=== PATIENT | male | born 1950 | race Hispanic/Latino ===

== ENCOUNTER 2018-02-09 13:10 | Inpatient (IN) | payer MEDICARE, OTHER ==
[2018-02-09 13:35] VITALS: BMI 25.4
--- NOTE | 2018-02-09 13:47 | ED PDOC ---
Arrival/HPI - General Chief Complaint: Chest Pain Time Seen by Provider: 02/09/18 13:24 - History of Present Illness Narrative History of Present Illness (Text): 67 year old male with PMH of quadruple bypass for AZ presents with lightheadedness at 11 AM today and right sided chest pressure at 12:30 PM today. Patient reports not having the chest pressure right now but has continued lightheadedness. He took aspirin 325 this morning which did not relieve his pain. He denies left arm pain, jaw pain, nausea, vomiting, diaphoresis, shortness of breath. He also reports having right sided chest pressure 2 days ago which receded without any intervention. (Raymon Gonzalez) Past Medical History - Provider Review Nursing Documentation Reviewed: Yes - Infectious Disease Hx of Infectious Diseases: None - Cardiac Hx AZ: Yes - Psychiatric Hx Psychophysiologic Disorder: No Hx Anxiety: No Hx Bipolar Disorder: No Hx Depression: No Hx Emotional Abuse: No Hx Hallucinations: No Hx Panic Disorder: No Hx Post Traumatic Stress Disorder: No Hx Psychosis: No Hx Physical Abuse: No Hx Schizophrenia: No Hx Sexual Abuse: No Hx Substance Use: No - Surgical History Hx Coronary Artery Bypass Graft: Yes (triple vessel) - Anesthesia Hx Anesthesia: Yes Hx Anesthesia Reactions: No Hx Malignant Hyperthermia: No Family/Social History - Physician Review Nursing Documentation Reviewed: Yes Family/Social History: Unknown Family HX Smoking Status: Never Smoked Hx Alcohol Use: No Hx Substance Use: No Allergies/Home Meds Allergies/Adverse Reactions: Allergies No Known Allergies Allergy (Verified 09/09/15 11:56) Home Medications: Home Meds Medication Instructions Recorded Confirmed Aspirin 325 mg PO DAILY 09/09/15 02/09/18 Ezetimibe [Zetia] 10 mg PO DAILY 09/09/15 02/09/18 Metoprolol Succinate XL [Toprol XL] 50 mg PO DAILY 09/09/15 02/09/18 Rosuvastatin Calcium [Crestor] 20 mg PO DAILY 09/09/15 02/09/18 metFORMIN [glucOPHAGE] 1 tab PO DAILY 02/09/18 02/09/18 Review of Systems - Review of Systems Eyes: Normal ENT: Normal Respiratory: Normal Cardiovascular: Chest Pain (right sided chest pressure) Gastrointestinal: Normal Musculoskeletal: Normal Skin: Normal Neurological: Normal Endocrine: Normal Hemo/Lymphatic: Normal Psychiatric: Normal Physical Exam - Systems Exam Head: Present: Atraumatic Pupils: Present: PERRL Extroacular Muscles: Present: EOMI Conjunctiva: Present: Normal Mouth: Present: Moist Mucous Membranes Nose (External): Present: Atraumatic Vital Signs Temp Pulse Resp BP Pulse Ox 02/09/18 13:10 98.1 F 61 18 145/79 96 Medical Decision Making ED Course and Treatment: 02/09/18 14:41 A 67 year old male presents to the emergency department today complaining of lightheadedness. In agreement with resident note, which includes further HPI details. Patient was seen and evaluated with resident, came up with plan and treatment together. (Hever Lamar) Impression: 67 year old male presents with lightheadedness for 2.5 hours and right sided chest pressure for 1 hour. Assessment: unstable angina, possible anemia Rule out: AZ, pulmonary embolism, peptic ulcer disease, pneumonia, aortic dissection Plan: O2 NC 2L CBC CMP Troponin: 0.15 Magnesium EKG: sinus bradycardia with occasional PVCs CXR: No active disease UA: 02/09/18 15:10 Troponin was 0.15. EKG was in sinus bradycardia with occasional PVCs. NSTEMI likely. Patient will receive [address] Newman will be called and patient will be admitted. 02/09/18 16:19 Dr. Woods is the certified midwife transportation associate and has not returned our calls. Patient will be admitted to Dr. Sahu's hospitalist service. (Raymon Gonzalez) - Lab Interpretations Lab Results: 02/09/18 14:00 02/09/18 14:00 Lab Results 02/09/18 14:00: Sodium 142, Potassium 4.0, Chloride 108 H, Carbon Dioxide 22, Anion Gap 16, BUN 23 H, Creatinine 1.0, Est GFR ( Amer) > 60, Est GFR ( Non-Af Amer) > 60, Random Glucose 134 H, Calcium 9.1, Magnesium 2.1, Total Bilirubin 0.5, AST 44, ALT 46, Alkaline Phosphatase 64, Lactate Dehydrogenase 457, Total Creatine Kinase 180, Troponin I 0.15 H*, Total Protein 6.5, Albumin 4.0, Globulin 2.5, Albumin/Globulin Ratio 1.6 02/09/18 14:00: WBC 8.8 D, RBC 4.15, Hgb 13.5 L, Hct 38.9 L, MCV 93.7, MCH 32.5 , MCHC 34.7, RDW 13.9, Plt Count 206, MPV 9.1, Gran % 70.6 H, Lymph % (Auto) 17.8 L, Haskell % (Auto) 7.5 H, Eos % (Auto) 3.9, Baso % (Auto) 0.2, Gran # 6.21, Lymph # (Auto) 1.6, Haskell # (Auto) 0.7 H, Eos # (Auto) 0.3, Baso # (Auto) 0.02 - RAD Interpretation Radiology Orders: 02/09/18 13:45 CHEST PORTABLE [RAD] Stat - Medication Orders Current Medication Orders: Discontinued Medications Clopidogrel Bisulfate (Plavix) 300 mg PO STAT STA Stop: 02/09/18 15:08 Last Admin: 02/09/18 16:00 Dose: 300 mg Nitroglycerin (Nitrostat Sl Tab) 0.4 mg SL STAT STA Stop: 02/09/18 13:47 Last Admin: 02/09/18 13:58 Dose: Not Given Non-Admin Reason: Patient Refused - PA / [employer] PILOT / Resident Statement / has reviewed & agrees with the documentation as recorded. / has examined the patient and agrees with the treatment plan. Disposition/Present on Arrival - Present on Arrival Any Indicators Present on Arrival: No History of DVT/PE: No History of Uncontrolled Diabetes: No Urinary Catheter: No History Surgical Site Infection Following: None - Disposition Have Diagnosis and Disposition been Completed?: Yes Disposition Time: 16:17 Patient Plan: Admission - Disposition Diagnosis: NSTEMI (non-ST elevated myocardial infarction) Disposition: HOSPITALIZED Patient Problems: Current Active Problems Problem Status Onset NSTEMI (non-ST elevated myocardial infarction) Acute Condition: UNKNOWN Referrals: Lb Leal DO [Primary Care Provider] - Follow up with primary Forms: [employer] (Armenian)
[2018-02-09 14:10] LABS: BASO # 0.02 K/mm3 (0.0-2.0); BASO % 0.2 % (0.0-3.0); EOS # 0.3 (0.0-0.7); EOS % 3.9 % (1.5-5.0); GRAN # 6.21 (1.4-6.5); GRAN % 70.6 % (50.0-68.0); HEMOGLOBIN 13.5 g/dL (14.0-18.0); LYMPH # 1.6 (1.2-3.4); LYMPH % 17.8 % (22.0-35.0); MEAN CELL VOLUME 93.7 fl (80.0-105.0); MEAN CORPUSCULAR HEMOGLOBIN 32.5 pg (25.0-35.0); MEAN CORPUSCULAR HGB CONC 34.7 g/dl (31.0-37.0); MEAN PLATELET VOLUME 9.1 fl (7.0-11.0); MONO # 0.7 (0.1-0.6); MONO % 7.5 % (1.0-6.0); RBC 4.15 10^6/uL (3.5-6.1); RED CELL DISTRIBUTION WIDTH 13.9 % (11.5-14.5); WHITE BLOOD COUNT 8.8 10^3/ul (4.5-11.0)
--- NOTE | 2018-02-09 14:14 | RAD ---
Date of service: 02/09/2018 HISTORY: r/o infiltrate COMPARISON: No prior. FINDINGS: LUNGS: No active pulmonary disease. PLEURA: No significant pleural effusion identified, no pneumothorax apparent. CARDIOVASCULAR: Moderate cardiomegaly OSSEOUS STRUCTURES: Sternal wire VISUALIZED UPPER ABDOMEN: Normal. OTHER FINDINGS: None. IMPRESSION: No active disease.
[2018-02-09 14:15] LABS: ALB/GLOB RATIO 1.6 (1.1-1.8); ALT/SGPT 46 U/L (7-56); AST/SGOT 44 U/L (17-59); BLOOD UREA NITROGEN 23 mg/dL (7-21); CALCIUM 9.1 mg/dL (8.4-10.5); GFR AFRICAN-AMERICAN > 60; GFR NON-AFRICAN AMERICAN > 60
[2018-02-09 14:48] LABS: TROPONIN I 0.15 ng/mL
[2018-02-09 16:23] LABS: URINE BILIRUBIN NEGATIVE (NEGATIVE); URINE BLOOD NEGATIVE (NEGATIVE); URINE GLUCOSE (UA) NEGATIVE (NEGATIVE); URINE LEUKOCYTE ESTERASE NEGATIVE Leu/uL (NEGATIVE); URINE PROTEIN NEGATIVE mg/dL (<30 mg/dL); URINE UROBILINOGEN 0.2 E.U./dL (<1 E.U./dL)
[2018-02-09 16:24] LABS: URINE APPEARANCE CLEAR (CLEAR); URINE COLOR YELLOW (YELLOW)
[2018-02-09] MEDS ORDERED: Enoxaparin 80 mg Syringe SC STA (17:25)
--- NOTE | 2018-02-09 18:39 | CP.PCM.HP ---
<SamreenIvan - Last Filed: 02/09/18 19:43> History of Present Illness - History of Present Illness History of Present Illness: Ivan Jolley PGY2 IM H&P Note for Dr. Saleh Mr. Michaels is a 67-year-old male with a past medical history of CAD S/P CABG with triple vessel bypass (1994 in [facility] and lung [place]), ACS, DM 2, HTN, HLD, GERD, obstructive sleep apnea, arthritis of left hip who presents to the ED with complaints of multiple episodes of chest pain lasting no longer than 30 minutes each. His symptoms started 2 days ago after eating and resolved after 30 minutes without any medications, but he later had the same symptoms at night and they recurred again throughout the day yesterday and on the morning of his presentation. The patient describes the pain as substernal chest pain or heaviness radiating toward his right shoulder but not associated with diaphoresis, shortness of breath, nausea/vomiting, headaches, weakness, dizziness, or abdominal pain. The patient states that this is not similar to the pain that he had when he had his ACS symptoms many years ago, which was more of a choking sensation in his chest radiating to his neck. The patient does state that this is more similar to his GERD symptoms, but he did not attempt to take his home omeprazole for it, and denies any new foods or excessive spicy or fatty foods. When evaluated by medical team, the patient denied all complaints of chest pain or shortness of breath. The patient is a private patient of Dr. Newman, and states that he follows up with him regularly. He states that his last echo and stress test were done by Dr. Newman in the past year, however chart review reveals that his last stress test on file is from 2016 which showed an abnormal SPECT study with partially reversible inferior and inferolateral defects with inferolateral hypokinesis and paradoxical septal wall motion. Per , the patient has experienced ACS episodes since his CABG and underwent multiple LHC's (most recent 4 yrs ago), but was not a candidate for stents due to anatomy post CABG. A 12 point ROS was reviewed and is otherwise unremarkable. In ED, troponin was noted to be 0.15 an EKG was in sinus bradycardia with occasional PVCs. Patient was given 300 mg Plavix. Toy Designer was contacted, and recommended patient to be treated as NSTEMI. Patient was started on therapeutic Lovenox, lisinopril, and cardio recommended to recheck troponins in the morning. PMH: as above PSH: CABG, uvulectomy Meds: Aspirin 325 mg daily, metoprolol succinate 50 mg daily, rosuvastatin 20 mg daily, ezetimibe 10 mg daily, metformin 500 mg daily, omeprazole 40mg daily Allergies: NKDA SHx: Former tobacco smoker (1 pack per day for over 30 years), drinks wine occasionally, denies drug use FHx: Heart disease in both sides of the family Present on Admission - Present on Admission Any Indicators Present on Admission: No Review of Systems - Review of Systems All systems: reviewed and no additional remarkable complaints except (as per HPI ) Past Patient History - Infectious Disease Hx of Infectious Diseases: None - Past Medical History & Family History Past Medical History?: Yes Pertinent Family History: Heart disease in both sides of family - Past Social History Smoking Status: Never Smoked Alcohol: < 2 Drinks/Day Drugs: Denies Home Situation {Lives}: With Family - CARDIAC Hx Heart Attack: Yes (s/p CABG) Hx Hypercholesterolemia: Yes Hx Hypertension: Yes - PULMONARY Hx Respiratory Disorders: No - NEUROLOGICAL Hx Neurological Disorder: No - HEENT Hx HEENT Problems: No - RENAL Hx Chronic Kidney Disease: No - ENDOCRINE/METABOLIC Hx Diabetes Mellitus Type 2: Yes - HEMATOLOGICAL/ONCOLOGICAL Hx Blood Disorders: No - INTEGUMENTARY Hx Dermatological Problems: No - MUSCULOSKELETAL/RHEUMATOLOGICAL Hx Arthritis: Yes - GASTROINTESTINAL Hx Gastroesophageal Reflux: Yes - GENITOURINARY/GYNECOLOGICAL Hx Genitourinary Disorders: No - PSYCHIATRIC Hx Psychophysiologic Disorder: No Hx Anxiety: No Hx Bipolar Disorder: No Hx Depression: No Hx Emotional Abuse: No Hx Hallucinations: No Hx Panic Symptoms: No Hx Post Traumatic Stress Disorder: No Hx Psychosis: No Hx Physical Abuse: No Hx Schizophrenia: No Hx Sexual Abuse: No Hx Substance Use: No - SURGICAL HISTORY Hx Coronary Artery Bypass Graft: Yes (triple vessel) - ANESTHESIA Hx Anesthesia: Yes Hx Anesthesia Reactions: No Hx Malignant Hyperthermia: No Meds Allergies/Adverse Reactions: Allergies Allergy/AdvReac Type Severity Reaction Status Date / Time No Known Allergies Allergy Verified 09/09/15 11:56 Physical Exam - Constitutional Appears: Well, Non-toxic, No Acute Distress - Head Exam Head Exam: NORMAL INSPECTION - Eye Exam Eye Exam: Normal appearance - ENT Exam ENT Exam: Mucous Membranes Moist - Respiratory Exam Respiratory Exam: Clear to Auscultation Bilateral, NORMAL BREATHING PATTERN. absent: Accessory Muscle Use, Chest Wall Tenderness, Decreased Breath Sounds, Rales, Rhonchi, Wheezes, Respiratory Distress - Cardiovascular Exam Cardiovascular Exam: RRR, +S1, +S2. absent: JVD, Systolic Murmur - GI/Abdominal Exam GI & Abdominal Exam: Normal Bowel Sounds, Soft. absent: Distended, Tenderness - Extremities Exam Extremities exam: Positive for: full ROM, normal inspection, pedal pulses present. Negative for: calf tenderness, pedal edema - Back Exam Back exam: NORMAL INSPECTION. absent: CVA tenderness (L), CVA tenderness (R), paraspinal tenderness, vertebral tenderness - Neurological Exam Neurological exam: Alert, CN II-XII Intact, Normal Gait, Oriented x3 - Psychiatric Exam Psychiatric exam: Normal Mood - Skin Skin Exam: Normal Color, Warm Results - Vital Signs Recent Vital Signs: Last Vital Signs Temp 98.1 F 02/09/18 13:10 Pulse 61 02/09/18 17:31 Resp 18 02/09/18 17:27 BP 130/81 02/09/18 17:31 Pulse Ox 95 02/09/18 17:27 - Labs Result Diagrams: 02/09/18 14:00 02/09/18 14:00 Assessment & Plan - Assessment and Plan (Free Text) Assessment: 67-year-old male with a past medical history of CAD S/P CABG with triple vessel bypass (1994 in [facility] and lung [place]), ACS, DM 2, HTN, HLD, GERD, obstructive sleep apnea, arthritis of left hip who presents to the ED with complaints of multiple episodes of chest pain. Given his extensive cardiac history and multiple episodes of chest pain not associated with exertion, and per cardiology recommendations, the patient will be admitted for workup and evaluation of ACS. He is currently receiving treatment for NSTEMI w/ triple antiplatelet therapy and troponin and EKGs will be followed. Plan: 1. ACS, treating for NSTMI - Patient was given Plavix and Lovenox therapeutic doses in the ED - Continue aspirin 81 mg, Plavix 75 mg daily and Lovenox 70 mg BID - f/u AM troponin - trend EKG and monitor for any changes - Cardiology will see patient in AM and determine if any intervention is required - NPO past MN - Continue Lipitor, metoprolol, and nitroglycerin SL as needed - A1C, Lipid panel and TSH ordered - zofran prn - admit to telemetry for monitoring - Echo ordered - CXR ordered 2. Hx DM2 - ISS - Accuchecks ACHS - CCD HHD Pepcid for GI ppx SCDs for DVT ppx Case was reviewed and discussed with attending, Dr. Saleh <Severino Saleh - Last Filed: 02/10/18 13:55> Results - Vital Signs Recent Vital Signs: Last Vital Signs Temp 98.9 F 02/10/18 12:00 Pulse 56 L 02/10/18 12:00 Resp 16 02/10/18 12:00 BP 122/64 02/10/18 12:00 Pulse Ox 97 02/10/18 06:00 - Labs Result Diagrams: 02/10/18 06:30 02/10/18 06:45 Labs: Laboratory Results - last 24 hr 02/09/18 02/10/18 02/10/18 21:40 06:30 06:45 WBC 7.2 RBC 4.30 Hgb 13.4 L Hct 40.3 L MCV 93.7 MCH 31.2 MCHC 33.3 RDW 14.0 Plt Count 200 MPV 9.4 Sodium 144 Potassium 3.8 Chloride 108 H Carbon Dioxide 26 Anion Gap 14 BUN 19 Creatinine 0.8 Est GFR ( Amer) > 60 Est GFR (Non-Af Amer) > 60 POC Glucose (mg/dL) 144 H Random Glucose 91 Calcium 9.1 Total Bilirubin 0.5 AST 56 ALT 49 Alkaline Phosphatase 61 Lactate Dehydrogenase 449 Total Creatine Kinase 224 Troponin I 3.70 H* D Total Protein 6.2 Albumin 3.7 Globulin 2.5 Albumin/Globulin Ratio 1.5 02/10/18 02/10/18 07:17 11:02 WBC RBC Hgb Hct MCV MCH MCHC RDW Plt Count MPV Sodium Potassium Chloride Carbon Dioxide Anion Gap BUN Creatinine Est GFR ( Amer) Est GFR (Non-Af Amer) POC Glucose (mg/dL) 84 79 Random Glucose Calcium Total Bilirubin AST ALT Alkaline Phosphatase Lactate Dehydrogenase Total Creatine Kinase Troponin I Total Protein Albumin Globulin Albumin/Globulin Ratio Attending/Attestation - Attestation I have personally seen and examined this patient.: Yes I have fully participated in the care of the patient.: Yes I have reviewed all pertinent clinical information: Yes Notes (Text): 02/10/18 13:46 Attending note; Patient seen and examined with the resident in ER. Patient's by the bedside. Patient is a 67-year-old male with a past medical history of CAD S/P CABG with triple vessel bypass (1994 in [facility] and lung [place]), DM 2, HTN, HLD, GERD, obstructive sleep apnea, arthritis of left hip who presents to the ED with complaints of multiple episodes of chest pain. Found to have nonspecific ST-T changes. Troponin was elevated at 0.15 level. Case discussed with scrap collector Dr. Woods in detail. Started on aspirin, Plavix and Lovenox. Continue metoprolol and Lipitor. Monitor cardiac enzymes. Admit to telemetry. Diabetes; continue regular insulin sliding scale. Hemoglobin A1c ordered. We'll follow up with cardiology for further plan. Upon discharge patient will follow up with PMD Dr. Leal.
[2018-02-09] MEDS: Insulin Lispro (humaLOG) MEDIUM Coverage SC SCH (21:51)
[2018-02-10] MEDS: Enoxaparin 80 mg Syringe SC SCH ×2 (05:46→17:18)
[2018-02-10 07:26] LABS: HEMOGLOBIN 13.4 g/dL (14.0-18.0); MEAN CELL VOLUME 93.7 fl (80.0-105.0); MEAN CORPUSCULAR HEMOGLOBIN 31.2 pg (25.0-35.0); MEAN CORPUSCULAR HGB CONC 33.3 g/dl (31.0-37.0); MEAN PLATELET VOLUME 9.4 fl (7.0-11.0); RBC 4.3 10^6/uL (3.5-6.1); WHITE BLOOD COUNT 7.2 10^3/ul (4.5-11.0)
[2018-02-10 08:01] LABS: ALB/GLOB RATIO 1.5 (1.1-1.8); ALBUMIN 3.7 g/dL (3.0-4.8); ALT/SGPT 49 U/L (7-56); AST/SGOT 56 U/L (17-59); BLOOD UREA NITROGEN 19 mg/dL (7-21); CALCIUM 9.1 mg/dL (8.4-10.5); GFR AFRICAN-AMERICAN > 60; GFR NON-AFRICAN AMERICAN > 60
[2018-02-10] MEDS: Insulin Lispro (humaLOG) MEDIUM Coverage SC SCH ×4 (08:15→22:30)
--- NOTE | 2018-02-10 09:10 | RAD ---
Date of service: 02/09/2018 HISTORY: chest pain r/o ACS COMPARISON: 02/09/2018 FINDINGS: LUNGS: No active pulmonary disease. PLEURA: No significant pleural effusion identified, no pneumothorax apparent. CARDIOVASCULAR: Mild cardiomegaly OSSEOUS STRUCTURES: Sternal wires VISUALIZED UPPER ABDOMEN: Normal. OTHER FINDINGS: None. IMPRESSION: No active disease.
[2018-02-10] MEDS ORDERED: Non Formulary Medication (Rosuvastatin Calcium [Crestor] 20 MG) PO SCH (10:00)
[2018-02-10] MEDS: Metoprolol Succinate 50 mg XL Tab PO SCH (10:16)
--- NOTE | 2018-02-10 12:45 | CP.PCM.PN ---
<Steven Monroe - Last Filed: 02/10/18 13:45> Subjective - Date & Time of Evaluation Date of Evaluation: 02/10/18 Time of Evaluation: 12:42 - Subjective Subjective: Steven Monroe D.O PGY-1, Internal Medicine progress note for Dr. Saleh Patient was examined at bedside, no acute overnight events. Patient offers no new complaints at this time. Denies fevers, chills, chest pain, shortness of breath, abdominal pain, N/V/D. Objective - Vital Signs/Intake and Output Vital Signs (last 24 hours): Temp Pulse Resp BP Pulse Ox 98.1 F 57 L 20 105/64 97 02/10/18 06:00 02/10/18 10:16 02/10/18 06:00 02/10/18 06:00 02/10/18 06:00 Intake and Output: 02/10/18 02/10/18 06:59 18:59 Intake Total 300 Balance 300 - Medications Medications: Current Medications Aspirin (Ecotrin) 81 mg PO DAILY [facility] Last Admin: 02/10/18 10:16 Dose: 81 mg Atorvastatin Calcium (Lipitor) 40 mg PO DIN [facility] Last Admin: 02/09/18 19:02 Dose: 40 mg Clopidogrel Bisulfate (Plavix) 75 mg PO DAILY [facility] Last Admin: 02/10/18 10:16 Dose: 75 mg Enoxaparin Sodium (Lovenox) 70 mg SC 0500,1700 [facility] PRN Reason: Protocol Stop: 02/10/18 19:00 Last Admin: 02/10/18 05:46 Dose: 70 mg Famotidine (Pepcid) 20 mg PO 1000,2200 [facility] Last Admin: 02/10/18 10:16 Dose: Not Given Insulin Human Lispro (Humalog Med) 0 units SC ACHS [facility] PRN Reason: Protocol Last Admin: 02/10/18 12:01 Dose: Not Given Metoprolol Succinate (Toprol Xl) 50 mg PO DAILY [facility] Last Admin: 02/10/18 10:16 Dose: Not Given Nitroglycerin (Nitrostat Sl Tab) 0.4 mg SL Q15MIN PRN PRN Reason: Shortness of Breath Ondansetron HCl (Zofran Inj) 4 mg IVP Q4H PRN PRN Reason: Nausea/Vomiting - Labs Labs: 02/10/18 06:30 02/10/18 06:45 - Constitutional Appears: No Acute Distress - Head Exam Head Exam: ATRAUMATIC, NORMAL INSPECTION - Eye Exam Eye Exam: Normal appearance - ENT Exam ENT Exam: Mucous Membranes Moist - Respiratory Exam Respiratory Exam: Clear to Ausculation Bilateral. absent: Rales, Rhonchi, Wheezes - Cardiovascular Exam Cardiovascular Exam: REGULAR RHYTHM, +S1, +S2. absent: Gallop, Rubs, Murmur - GI/Abdominal Exam GI & Abdominal Exam: Soft, Normal Bowel Sounds. absent: Tenderness - Extremities Exam Extremities Exam: absent: Calf Tenderness, Pedal Edema - Neurological Exam Neurological Exam: Alert, Awake, Oriented x3 - Psychiatric Exam Psychiatric exam: Normal Affect, Normal Mood - Skin Skin Exam: Dry, Normal Color, Warm Assessment and Plan - Assessment and Plan (Free Text) Assessment: Mr. Michaels is a 67-year-old male with a PMH of CAD S/P CABG with triple vessel bypass (1994), ACS, DM 2, HTN, HLD, GERD, obstructive sleep apnea, and arthritis of left hip who is presenting with multiple episodes of chest pain and for workup and evaluation of ACS. Plan: ACS, treating for NSTEMI - Continue aspirin 81 mg, Plavix 75 mg daily and Lovenox 70 mg BID - Troponin went up to 3.7 from 0.15 - Patient on telemetry - trend EKG and monitor for any changes - Cardiology saw patient today, will re-evaluate tomorrow for possible cardiac catheterization on 02/11. - NPO past MN - Continue Lipitor, metoprolol, and nitroglycerin SL as needed - zofran prn - Echo ordered - CXR: negative - Heart healthy diet History of DM2 - ISS - Accuchecks ACHS GI/DVT prophylaxis - Pepcid - SCD's Case was reviewed and discussed with attending, Dr. Saleh <Severino Saleh - Last Filed: 02/10/18 13:57> Objective - Vital Signs/Intake and Output Vital Signs (last 24 hours): Temp Pulse Resp BP Pulse Ox 98.9 F 56 L 16 122/64 97 02/10/18 12:00 02/10/18 12:00 02/10/18 12:00 02/10/18 12:00 02/10/18 06:00 Intake and Output: 02/10/18 02/10/18 06:59 18:59 Intake Total 300 Balance 300 - Medications Medications: Current Medications Aspirin (Ecotrin) 81 mg PO DAILY [facility] Last Admin: 02/10/18 10:16 Dose: 81 mg Atorvastatin Calcium (Lipitor) 40 mg PO DIN [facility] Last Admin: 02/09/18 19:02 Dose: 40 mg Clopidogrel Bisulfate (Plavix) 75 mg PO DAILY [facility] Last Admin: 02/10/18 10:16 Dose: 75 mg Enoxaparin Sodium (Lovenox) 70 mg SC 0500,1700 [facility] PRN Reason: Protocol Stop: 02/10/18 19:00 Last Admin: 02/10/18 05:46 Dose: 70 mg Famotidine (Pepcid) 20 mg PO 1000,2200 [facility] Last Admin: 02/10/18 10:16 Dose: Not Given Insulin Human Lispro (Humalog Med) 0 units SC ACHS [facility] PRN Reason: Protocol Last Admin: 02/10/18 12:01 Dose: Not Given Metoprolol Succinate (Toprol Xl) 50 mg PO DAILY [facility] Last Admin: 02/10/18 10:16 Dose: Not Given Nitroglycerin (Nitrostat Sl Tab) 0.4 mg SL Q15MIN PRN PRN Reason: Shortness of Breath Ondansetron HCl (Zofran Inj) 4 mg IVP Q4H PRN PRN Reason: Nausea/Vomiting - Labs Labs: 02/10/18 06:30 02/10/18 06:45 Attending/Attestation - Attestation I have personally seen and examined this patient.: Yes I have fully participated in the care of the patient.: Yes I have reviewed all pertinent clinical information, including history, physical exam and plan: Yes Notes (Text): 02/10/18 13:55 Attending note; Patient seen and examined with the resident. Patient denies any chest pain, shortness of breath. Denies any palpitation, sweating, nausea, vomiting. Patient is a 67-year-old male with a past medical history of CAD S/P CABG with triple vessel bypass (1994 in [facility] and lung [place]), DM 2, HTN, HLD, GERD, obstructive sleep apnea, arthritis of left hip who presents to the ED with complaints of multiple episodes of chest pain. Found to have nonspecific ST-T changes. Troponin level is 3.7. Case discussed with application performance engineer Dr. Woods in detail. Started on aspirin, Plavix and Lovenox. Continue metoprolol and Lipitor. Nothing by mouth past midnight for cardiac cath tomorrow. Diabetes; continue regular insulin sliding scale. Hemoglobin A1c 6.0. Upon discharge patient will follow up with PMD Dr. Leal. 02/10/18 13:57
--- NOTE | 2018-02-10 13:07 | CON ---
DATE: 02/10/[address] Elias. HISTORY: The patient is a 67-year-old male, who presents with symptoms consistent with unstable angina. His troponin's were elevated consistent with a non-STEMI. The patient's past medical history includes history of myocardial infarction in the past as well as status post coronary bypass surgery years ago at [facility]. His last catheterization several years ago revealed occluded bypass grafts. His cardiac risk factors includes diabetes mellitus, hypertension, hypercholesterolemia as well as smoking. The patient continues to intermittently smoke. He had a stress test done [address] Newman, whose results were unclear. SOCIAL HISTORY: The patient is an intermittent smoker. REVIEW OF SYSTEMS: Fourteen-point review of systems is reviewed in detail. The patient is chest pain free now. No shortness of breath. No edema. PHYSICAL EXAMINATION: VITAL SIGNS: On physical exam, blood pressure is 105/64 with the heart rate is in the 60s. Normal sinus rhythm. NECK: Negative JVD. LUNGS: Without rales. HEART: Reveals S1, S2. EXTREMITIES: Without edema. LABORATORY DATA: Troponin was 0.15 up to 3.70 today. Glucose is 144. Hemoglobin is 13.4. EKG shows normal sinus rhythm with nonspecific ST-T changes. IMPRESSION: 1. Unstable angina. 2. [id number] myocardial infarction. 3. Chronic obstructive pulmonary disease. 4. History of coronary artery bypass surgery. 5. Coronary artery disease. 6. Hypercholesterolemia. 7. Diabetes mellitus. PLAN: Given these findings, we will start the patient on Plavix. Subcu Lovenox has been ordered. We will discuss with Dr. Elias about cardiac catheterization in the morning. Rigoberto Woods MD
--- NOTE | 2018-02-10 17:02 | CARD ---
APPROVED REPORT Date of service: 02/10/2018 EKG Measurement Heart [id number] <Conclusion> Normal sinus rhythm Inferior infarct, age undetermined ST & T wave abnormality, consider lateral ischemia Abnormal ECG
--- NOTE | 2018-02-10 17:12 | CARD ---
APPROVED REPORT Date of service: 02/09/2018 EKG Measurement Heart [id number] <Conclusion> Sinus bradycardia with occasional premature ventricular complexes Inferior infarct, age undetermined ST & T wave abnormality, consider lateral ischemia Abnormal ECG
--- NOTE | 2018-02-10 17:12 | CARD ---
APPROVED REPORT Date of service: 02/09/2018 EKG Measurement Heart [id number] <Conclusion> Sinus bradycardia Inferior infarct, possibly acute ACUTE [place] Consider right ventricular involvement in acute inferior infarct Abnormal ECG
[2018-02-11] MEDS: Insulin Lispro (humaLOG) MEDIUM Coverage SC SCH ×4 (08:05→22:01)
[2018-02-11 08:08] LABS: BASO # 0.01 K/mm3 (0.0-2.0); BASO % 0.2 % (0.0-3.0); EOS # 0.4 (0.0-0.7); EOS % 6.2 % (1.5-5.0); GRAN # 3.67 (1.4-6.5); GRAN % 57.8 % (50.0-68.0); HEMOGLOBIN 13.4 g/dL (14.0-18.0); LYMPH # 1.5 (1.2-3.4); LYMPH % 23.8 % (22.0-35.0); MEAN CELL VOLUME 92.8 fl (80.0-105.0); MEAN CORPUSCULAR HGB CONC 34.4 g/dl (31.0-37.0); MEAN PLATELET VOLUME 8.9 fl (7.0-11.0); MONO # 0.8 (0.1-0.6); RBC 4.19 10^6/uL (3.5-6.1); RED CELL DISTRIBUTION WIDTH 13.8 % (11.5-14.5); WHITE BLOOD COUNT 6.3 10^3/ul (4.5-11.0)
[2018-02-11 08:33] LABS: ALB/GLOB RATIO 1.7 (1.1-1.8); ALBUMIN 3.8 g/dL (3.0-4.8); ALT/SGPT 41 U/L (7-56); AST/SGOT 40 U/L (17-59); BLOOD UREA NITROGEN 16 mg/dL (7-21); CALCIUM 9.1 mg/dL (8.4-10.5); GFR AFRICAN-AMERICAN > 60; GFR NON-AFRICAN AMERICAN > 60
[2018-02-11] MEDS: Metoprolol Succinate 50 mg XL Tab PO SCH ×2 (08:33→12:50)
[2018-02-11] MEDS ORDERED: Verapamil 2 ML ONE (09:43)
[2018-02-11] MEDS ORDERED: Lidocaine 2% Inj (20ml) ONE (09:43)
[2018-02-11] MEDS ORDERED: Iodixanol 320 MG/ML 100 ML BOTTLE IV ONE (09:44)
[2018-02-11] MEDS ORDERED: Iohexol 350mgl/ml 50 ML ONE (09:44)
[2018-02-11] MEDS ORDERED: Iodixanol 320 MG/ML 200 ML BOTTLE IV ONE (09:44)
[2018-02-11] MEDS ORDERED: Midazolam 2 MG/2 ML VIAL ONE ×2 (09:59→10:21)
[2018-02-11] MEDS ORDERED: Eptifibatide 20 mg/10mL Inj IVP ONE ×2 (10:35→10:38)
[2018-02-11] MEDS ORDERED: Sodium Chloride 0.9% 1,000 ML IV SCH (11:45)
--- NOTE | 2018-02-11 12:23 | CPOSTOP ---
DATE: 02/11/2018 CARDIOVASCULAR LAB POST PROCEDURE NOTE DICTATING PHYSICIAN: Anne Elias MD. BEAUTY ARTIST: Jazmine tire maintenance technician. TYPE OF ANESTHESIA USED: Moderate conscious sedation, total 2 mg Versed, 100 of fentanyl given. Periodically started 50 mcg of fentanyl, 1 mg of Versed. PRE-PROCEDURE DIAGNOSES: Unstable angina, [id number] myocardial infarction. PROCEDURE PERFORMED: Left heart catheterization, left internal mammary artery injection, stenting of the left main and circumflex. FINDINGS: LAD mid 100% occluded, RCA 100% occluded, patent HILL to LAD, multiple high-grade stenoses of circumflex 90-99%. FINAL DIAGNOSIS: Three-vessel disease. POST PROCEDURE CONDITION: Stable. VASCULAR ACCESS SITE: Left radial. CLOSURE DEVICE: TR Band. TOTAL RADIATION DOSE: 3626.2 milligray unit. FLUORO TIME: 28.4 minutes. Anne Elias MD
--- NOTE | 2018-02-11 14:28 | IP.NPCORE ---
Heart Failure Core Measure - Heart Failure Ejection Fraction: 40 % or Greater Left Ventricular Function to be assessed after discharge: Yes Acute NE Core Measure PNote - LVF prior to this hospilization,if known LVF prior to this hospilization: Election Fraction greater than 40% - Source Source: Stress - Medications Aspirin Name/Dose/Frequency:: ecotrin 81 Beta Christiano prescribed: Name/dose/frequency: toprol xl 50 RAFI or ARB: Name/dose/frequency: zestril 2.5mg Lipid Lowering Agent: Name/Dose/Frequency: lipitor 40mg
[2018-02-11 14:58] LABS: BASO # 0.02 K/mm3 (0.0-2.0); BASO % 0.3 % (0.0-3.0); EOS # 0.3 (0.0-0.7); EOS % 4.5 % (1.5-5.0); GRAN # 4.13 (1.4-6.5); GRAN % 65.8 % (50.0-68.0); HEMOGLOBIN 12.9 g/dL (14.0-18.0); LYMPH # 1.4 (1.2-3.4); LYMPH % 21.7 % (22.0-35.0); MEAN CELL VOLUME 92.6 fl (80.0-105.0); MEAN CORPUSCULAR HEMOGLOBIN 31.9 pg (25.0-35.0); MEAN CORPUSCULAR HGB CONC 34.5 g/dl (31.0-37.0); MEAN PLATELET VOLUME 9.1 fl (7.0-11.0); MONO # 0.5 (0.1-0.6); MONO % 7.7 % (1.0-6.0); RBC 4.04 10^6/uL (3.5-6.1); RED CELL DISTRIBUTION WIDTH 13.8 % (11.5-14.5); WHITE BLOOD COUNT 6.3 10^3/ul (4.5-11.0)
[2018-02-11 15:11] LABS: BLOOD UREA NITROGEN 13 mg/dL (7-21); CALCIUM 8.7 mg/dL (8.4-10.5); GFR AFRICAN-AMERICAN > 60; GFR NON-AFRICAN AMERICAN > 60
--- NOTE | 2018-02-11 15:37 | CP.PCM.PN ---
<Steven Monroe - Last Filed: 02/11/18 18:08> Subjective - Date & Time of Evaluation Date of Evaluation: 02/11/18 Time of Evaluation: 15:36 - Subjective Subjective: Steven Monroe D.O PGY-1, Internal Medicine progress note for Dr. Briceño Patient was examined at bedside, no acute overnight events. Patient offers no new complaints at this time. Denies fevers, chills, chest pain, shortness of breath, abdominal pain, N/V/D. Objective - Vital Signs/Intake and Output Vital Signs (last 24 hours): Temp Pulse Resp BP Pulse Ox 98.7 F 61 18 128/84 97 02/11/18 13:45 02/11/18 14:15 02/11/18 14:15 02/11/18 14:15 02/11/18 12:00 Intake and Output: 02/11/18 02/11/18 06:59 18:59 Intake Total 660 Balance 660 - Medications Medications: Current Medications Aspirin (Ecotrin) 81 mg PO DAILY [facility] Last Admin: 02/11/18 12:49 Dose: Not Given Atorvastatin Calcium (Lipitor) 40 mg PO DIN [facility] Last Admin: 02/10/18 17:18 Dose: 40 mg Clopidogrel Bisulfate (Plavix) 75 mg PO DAILY [facility] Last Admin: 02/11/18 12:50 Dose: Not Given Famotidine (Pepcid) 20 mg PO 1000,2200 [facility] Last Admin: 02/11/18 10:00 Dose: Not Given Sodium Chloride (Sodium Chloride 0.9%) 1,000 mls @ 100 mls/hr IV .Q10H [facility] Stop: 02/11/18 18:00 Last Admin: 02/11/18 12:00 Dose: 100 mls/hr Insulin Human Lispro (Humalog Med) 0 units SC ACHS [facility] PRN Reason: Protocol Last Admin: 02/11/18 11:30 Dose: Not Given Lisinopril (Zestril) 2.5 mg PO DAILY [facility] Metoprolol Succinate (Toprol Xl) 50 mg PO DAILY [facility] Last Admin: 02/11/18 12:50 Dose: Not Given Nitroglycerin (Nitrostat Sl Tab) 0.4 mg SL Q15MIN PRN PRN Reason: Shortness of Breath Ondansetron HCl (Zofran Inj) 4 mg IVP Q4H PRN PRN Reason: Nausea/Vomiting - Labs Labs: 02/11/18 14:54 02/11/18 14:54 - Constitutional Appears: No Acute Distress - Head Exam Head Exam: ATRAUMATIC, NORMAL INSPECTION - Eye Exam Eye Exam: Normal appearance - ENT Exam ENT Exam: Mucous Membranes Moist - Respiratory Exam Respiratory Exam: Clear to Ausculation Bilateral. absent: Rales, Rhonchi, Wheezes - Cardiovascular Exam Cardiovascular Exam: REGULAR RHYTHM, +S1, +S2. absent: Gallop, Rubs, Murmur - GI/Abdominal Exam GI & Abdominal Exam: Soft, Normal Bowel Sounds. absent: Tenderness - Extremities Exam Extremities Exam: absent: Calf Tenderness, Pedal Edema - Neurological Exam Neurological Exam: Alert, Awake, Oriented x3 - Psychiatric Exam Psychiatric exam: Normal Affect, Normal Mood - Skin Skin Exam: Dry, Normal Color, Warm Assessment and Plan - Assessment and Plan (Free Text) Assessment: Mr. Michaels is a 67-year-old male with a PMH of CAD S/P CABG with triple vessel bypass (1994), ACS, DM 2, HTN, HLD, GERD, obstructive sleep apnea, and arthritis of left hip who is presenting with multiple episodes of chest pain and for evaluation and management of ACS. Plan: ACS, treating for NSTEMI - Continue aspirin 81 mg, Plavix 75 mg daily - Cardiac catheterization done on 02/11 - Lovenox held for cath procedure - Troponin went down to 1.32 from 3.7- downtrending - Patient on telemetry, trend EKG and monitor for any changes - Continue Lipitor 40mg PO QD, metoprolol 50mg PO QD, and nitroglycerin 0.4 mg PRN - Zofran prn - Echocardiogram (02/11): pending - CXR (02/09): negative - Cardiology consulted - Heart healthy diet History of DM2 - ISS - Accuchecks ACHS History of hypertension - c/w Lisinopril History of hyperlipidemia - c/w Lipitor GI/DVT prophylaxis - Pepcid - SCD's Case was reviewed and discussed with attending, Dr. Briceño <Areli Briceño - Last Filed: 02/11/18 18:55> Objective - Vital Signs/Intake and Output Vital Signs (last 24 hours): Temp Pulse Resp BP Pulse Ox 98.2 F 59 L 20 117/76 97 02/11/18 18:00 02/11/18 18:00 02/11/18 18:00 02/11/18 18:00 02/11/18 18:00 Intake and Output: 02/11/18 02/11/18 06:59 18:59 Intake Total 660 300 Output Total 300 Balance 660 0 - Medications Medications: Current Medications Acetaminophen (Tylenol 325mg Tab) 650 mg PO Q6H PRN PRN Reason: Pain, moderate (4-7) Last Admin: 02/11/18 18:33 Dose: 650 mg Aspirin (Ecotrin) 81 mg PO DAILY [facility] Last Admin: 02/11/18 12:49 Dose: Not Given Atorvastatin Calcium (Lipitor) 40 mg PO DIN [facility] Last Admin: 02/11/18 17:52 Dose: 40 mg Clopidogrel Bisulfate (Plavix) 75 mg PO DAILY [facility] Last Admin: 02/11/18 12:50 Dose: Not Given Famotidine (Pepcid) 20 mg PO 1000,2200 [facility] Last Admin: 02/11/18 10:00 Dose: Not Given Insulin Human Lispro (Humalog Med) 0 units SC ACHS [facility] PRN Reason: Protocol Last Admin: 02/11/18 16:42 Dose: Not Given Lisinopril (Zestril) 2.5 mg PO DAILY [facility] Metoprolol Succinate (Toprol Xl) 50 mg PO DAILY [facility] Last Admin: 02/11/18 12:50 Dose: Not Given Nitroglycerin (Nitrostat Sl Tab) 0.4 mg SL Q15MIN PRN PRN Reason: Shortness of Breath Ondansetron HCl (Zofran Inj) 4 mg IVP Q4H PRN PRN Reason: Nausea/Vomiting - Labs Labs: 02/11/18 14:54 02/11/18 14:54 Attending/Attestation - Attestation I have personally seen and examined this patient.: Yes I have fully participated in the care of the patient.: Yes I have reviewed all pertinent clinical information, including history, physical exam and plan: Yes Notes (Text): Patient seen and examined by me at 14:30PM with resident. Patient is new to me. Case discussed with Dr. White. Case including HPI, physical exam, and physical assessment and plan discussed with resident. Agree with above with following additions/corrections. Patient is a 67-year-old male with past medical history significant for coronary artery disease status post CABG, type 2 diabetes, hypertension, hyperlipidemia, GERD, obstructive sleep apnea, and arthritis of the left hip the presented to the emergency room with chest pain. Patient is status post catheterization today. States he is feeling okay. Patient is having some pain at his left radial site which was the site of the procedure. Patient denies chest pain or shortness of breath. No abdominal pain, nausea, or vomiting. No fevers or chills. No headaches or dizziness. No dysuria. No diarrhea or constipation. No neck pain or back pain. Physical exam: Gen: Awake and alert lying in bed in no acute distress HEENT: Normocephalic, atraumatic, extraocular muscles intact, pupils equal reactive, oropharynx is pink and moist, no pharyngeal erythema or exudate appreciated, neck is supple. Cardiovascular: Normal rhythm, normal S1-S2. No murmurs, rubs, or gallops appreciated Pulmonary: Normal respiratory effort. No rhonchi, rales or wheezing appreciated. Gastrointestinal: Soft, nontender, nondistended, positive bowel sounds all 4 quadrants, no guarding Musculoskeletal: Normal range of motion all extremities, no calf tenderness. TR band in place left wrist Central nervous system: AAO 3 Dermatologic: Skin warm and dry Assessment and plan: Patient is a 67-year-old male with past medical history significant for coronary artery disease status post CABG, type 2 diabetes, hypertension, hyperlipidemia, GERD, obstructive sleep apnea, and arthritis of the left hip the presented to the emergency room with chest pain. Patient found to have unstable angina and NSTEMI. 1. NSTEMI, ACS, unstable angina in a patient with coronary artery disease status post CABG. Chest pain resolved. Cardiology following, recommendations appreciated. Patient is status post cardiac catheterization today. Cardiac catheterization per configuration analyst showed three-vessel disease with LAD 100% occluded, RCA 100% occluded, multiple high-grade stenosis of circumflex 90-99%. Patient status post stent placement and balloon angioplasty. Continue aspirin 81 mg daily, Plavix 75 mg daily, Toprol-XL 50 mg daily, lisinopril 2.5 mg daily , and Lipitor 40 mg every evening. 2-D echo results pending. Continue to monitor on telemetry. 2. Essential hypertension. Continue Toprol-XL and lisinopril 3. Hyperlipidemia. Continue Lipitor 40 mg every evening 4. DM 2. Continue insulin sliding scale and diabetic diet. Monitor Accu-Cheks. 5. GERD. Continue Pepcid twice a day 6. Disposition. DC planning for tomorrow if cleared by cardiology Case was discussed in detail with the patient and medical records coder at bedside regarding current diagnosis and treatment plan
--- NOTE | 2018-02-11 18:21 | CARD ---
APPROVED REPORT Date of service: 02/11/2018 EXAM: Two-dimensional and M-mode echocardiogram with Doppler and color Doppler. INDICATION UNSTABLE ANGINA/LVFX 2D DIMENSIONS Left Atrium (2D)4.2 (1.6-4.0cm)IVSd0.9 (0.7-1.1cm) LVDd5.2 (3.9-5.9cm)PWd1.0 (0.7-1.1cm) LVDs4.0 (2.5-4.0cm)FS (%) 24.3 % LVEF (%)48.2 (>50%) M-Mode DIMENSIONS Aortic Root4.20 (2.2-3.7cm)Aortic Cusp Exc.2.00 (1.5-2.0cm) Aortic Valve AoV Peak Wukzoutw373.0cm/Fartun Peak GR.7mmHg Mitral Valve MV E Onahhmdq99.9cm/sMV A Vfthsnmu30.7cm/sE/A ratio0.8 TDI Lateral E' Peak V11.60cm/sMedial E' Peak V7.70cm/sE/Lateral E'7.1 E/Medial E'10.8 Pulmonary Valve PV Peak Xejbgcxv92.0cm/sPV Peak Grad.2mmHg Tricuspid Valve TR Peak Djkgnkvg451qx/sRAP SSSPAOTG64bhMjYT Peak Gr.9mmHg [id number] LEFT VENTRICLE The left ventricle is normal size. There is normal left ventricular wall thickness. Left ventricle systolic function is borderline.EF-50% There is mild to moderate hypokinesis in the basal inferolateral wall. Transmitral Doppler flow pattern is Grade III-reversible restrictive diastolic dysfunction. No left ventricle thrombus noted on this study. There is no ventricular septal defect visualized. There is no left ventricular aneurysm. There is no mass noted in the left ventricle. RIGHT VENTRICLE The right ventricle is normal size. There is normal right ventricular wall thickness. The right ventricular systolic function is normal. ATRIA The left atrium is borderline dilated. The right atrium size is normal. The interatrial septum is intact with no evidence for an atrial septal defect. AORTIC VALVE The aortic valve is thickened but opens well. There is trace aortic regurgitation. There is no aortic valvular stenosis. There is no aortic valvular vegetation. MITRAL VALVE The mitral valve is thickened but opens well. Mitral regurgitation is trace. There is no mitral valve stenosis. There is no evidence of mitral valve prolapse. TRICUSPID VALVE The tricuspid valve leaflets are thickened , but open well. There is trace tricuspid regurgitation.RVSP_19 mmof hg. There is no tricuspid valve stenosis. There is no tricuspid valve prolapse or vegetation. PULMONIC VALVE The pulmonic valve is borderline thickened. There is trace pulmonic valvular regurgitation. There is no pulmonic valvular stenosis. GREAT VESSELS The aortic root is normal in size. The ascending aorta is normal in size. The pulmonary artery is normal. The IVC is normal in size and collapses >50% with inspiration. PERICARDIAL EFFUSION There is no pleural effusion. There is no pericardial effusion. <Conclusion> The left ventricle is normal size. There is normal left ventricular wall thickness. Left ventricle systolic function is borderline.EF-50% There is trace aortic regurgitation. Mitral regurgitation is trace. There is trace tricuspid regurgitation.RVSP_19 mmof hg. The IVC is normal in size and collapses >50% with inspiration. There is no pericardial effusion. S/p NSTEMI, S/p PTCA
[2018-02-11 18:28] VITALS: RESP 20
--- NOTE | 2018-02-11 18:56 | CARD ---
APPROVED REPORT Date of service: 02/11/2018 EKG Measurement Heart [id number] [place] [id number] <Conclusion> Sinus bradycardia Possible Inferior infarct, age Old? ST & T wave abnormality, correlate clinically. Abnormal ECG
--- NOTE | 2018-02-11 19:39 | CARD ---
APPROVED REPORT Date of service: 02/11/2018 Procedure(s) performed: Left Heart Catheterization HILL Angiogram SVG Angiogram PTCA with Stenting of distal Left main and proximal Circumflex. PTCA with Balloon Angioplasty of Mid anddistal Cx( OM1) HISTORY The patient is a 67 year-old male with a history of : most recent EF: 48%. (EF Method: RADIONUCLIDE), diabetes mellitus with oral treatment , chronic lung disease, previous diagnostic cath, tobacco history() : The patient is a former smoker , hypertension , previous CABG (The CABG date was 07/30/1994), dyslipidemia , Admitted with NSTEMI. INDICATION The indication(s) include : non-STEMI . CASE TECHNIQUE The patient was brought urgently to the Cardiac Catheterization Laboratory in a fasting state and was prepped and draped in a sterile manner. The left wrist was infiltrated with 2% Lidocaine subcutaneous anesthesia. A 6FR GLIDESHEATH ACCESS KIT sheath was inserted into the left radial artery without difficulty. Coronary angiography was performed using coronary diagnostic catheters. The left coronary system was accessed and visualized with a Diagnostic ,5F JL 4 CATH DXT 100 CM catheter. The right coronary system was accessed and visualized with a Diagnostic ,5 Fr JR 4 catheter. The left ventricle was accessed and visualized with a 5 Fr Pigtail 145 (Angled) catheter. Left ventricular/Aortic Valve gradient assessed on pullback. Left ventriculogram was performed in GODFREY projection. Closure device was deployed with a Fr TR Band (Regular) without any complications. The patient tolerated the procedure well and there were no complications associated with the procedure. Vessel Analysis The patient's coronary anatomy is right dominant. The left main coronary artery is a medium size vessel with diffuse calcification noted throughout this vessel and without significant stenosis. There is a 90% stenosis in the distal segment. continued to Ostial Cx The left main bifurcates to the left anterior descending and circumflex. The left anterior descending artery is a medium size vessel with diffuse calcification noted throughout this vessel and with significant stenosis. There is a 100% stenosis in the mid segment. The first diagonal branch is a small size vessel with diffuse calcification noted throughout this vessel and without significant stenosis. The circumflex artery is a medium size vessel with diffuse calcification noted throughout this vessel and with significant stenosis. There is a 99% stenosis in the ostial segment. also cx has proximal ,and Mid l 90-95% stenises The first obtuse marginal branch is a medium size vessel with diffuse calcification noted throughout this vessel and with significant stenosis. There is a 99% stenosis in the distal segment. where pt had by pass graft was attached The right coronary artery is a medium size vessel with diffuse calcification noted throughout this vessel and with significant stenosis. There is a 100% stenosis in the mid segment. The left internal mammary artery to the mid left anterior descending artery segment is patent . The saphenous vein graft to the distal right coronary artery occluded since last cath 06/05/11 . The saphenous vein graft to the first obtuse marginal branch segment Occl;uded since last cath 06/05/2011 . Left Ventricle The left ventricle is normal in size with mildly dereased contractility. Ischemic cardiomyopathy. The left ventricular ejection fraction is estimated to be 45-50%. The left ventricular end diastolic pressure is 15 mmHg. There was no gradient across the aortic valve upon pullback. PCI Technique Lesion Anticoagulation was achieved with Heparin. Percutaneous coronary intervention was performed on the Dital Left main and proximal Cx. The lesion stenosis prior to intervention was 99% with OLIVE 1 flow. A 6 Fr XB 3 Guide Catheter was used to engage the ostium. A 0.014 x 182 cm Choice PT Extra Support Interventional Guidewire was used to cross the lesion. BALLOON DILATION A Balloon catheter 2.0 x 10 mm Sprinter RX was inserted and inflated up to 12.00atm for 15seconds. STENT DEPLOYMENT A drug-eluting stent STENT RESOLUTE JESSICA 2.5 X22 was inserted and inflated up to 14.00atm for 15seconds. Final angiography reveals 0 % stenosis with OLIVE 3 flow. PCI Technique Lesion 2 Percutaneous Coronary Intervention was performed on the mid circumflex artery segment. The lesion stenosis prior to intervention was 99% with OLIVE 1 flow. A 6 Fr XB 3 Guide Catheter was used to engage the ostium. A 0.014 x 182 cm Choice PT Extra Support Interventional Guidewire was used to cross the lesion. BALLOON DILATION A Balloon catheter 2.0 x 10 mm Sprinter RX was inserted and inflated up to 12.00atm for 30seconds. Final angiography reveals 40-50 % stenosis with OLIVE 3 flow. Conclusion [place] triple Vessel diseased. LAD 1005, RCA -1005, and CX 99% occlded. Patent HILL to LAD ,which give colateral to RCA and Fills backward to lAD and supplies Diagonals to lateral wall. Mildly decreased LV Fx. Ef-45-505, EDP-15 mmof HG. Successful PTCA with JUNIOR of Distal left Main and proximal CX and POBA of Distal Cx ( OM!) Recommendations Smoking Cessation Cardiac Rehabilitation ReferralDaily ASA with Plavix for at least one year Aggressive Medical TherapyCardiac Risk Reduction Program Cc; Drs. Leal/ Paty.
[2018-02-12 07:00] LABS: BASO # 0.02 K/mm3 (0.0-2.0); BASO % 0.2 % (0.0-3.0); EOS # 0.4 (0.0-0.7); EOS % 4.9 % (1.5-5.0); GRAN # 5.21 (1.4-6.5); HEMOGLOBIN 13.2 g/dL (14.0-18.0); LYMPH # 1.6 (1.2-3.4); LYMPH % 20.2 % (22.0-35.0); MEAN CELL VOLUME 93.3 fl (80.0-105.0); MEAN CORPUSCULAR HEMOGLOBIN 31.7 pg (25.0-35.0); MEAN CORPUSCULAR HGB CONC 33.9 g/dl (31.0-37.0); MEAN PLATELET VOLUME 9.2 fl (7.0-11.0); MONO # 0.8 (0.1-0.6); MONO % 9.7 % (1.0-6.0); RBC 4.17 10^6/uL (3.5-6.1)
[2018-02-12 07:13] LABS: ALB/GLOB RATIO 1.5 (1.1-1.8); ALBUMIN 3.8 g/dL (3.0-4.8); ALT/SGPT 66 U/L (7-56); AST/SGOT 74 U/L (17-59); BLOOD UREA NITROGEN 13 mg/dL (7-21); CALCIUM 8.9 mg/dL (8.4-10.5); GFR AFRICAN-AMERICAN > 60; GFR NON-AFRICAN AMERICAN > 60
[2018-02-12] MEDS: Insulin Lispro (humaLOG) MEDIUM Coverage SC SCH (07:30)
[2018-02-12] MEDS: Metoprolol Succinate 50 mg XL Tab PO SCH (09:55)
[2018-02-12 11:12] VITALS: O2SAT 98
[2018-02-12 11:22] VITALS: BP 135/84; PULSE 51; TEMP 98.3
--- NOTE | 2018-02-12 15:12 | CP.PCM.DIS ---
<Steven Monroe - Last Filed: 02/12/18 22:15> Provider - Provider Date of Admission: 02/09/18 16:19 Attending physician: Severino Saleh MD Primary care physician: Lb Leal DO Time Spent in preparation of Discharge (in minutes): 45 Diagnosis - Discharge Diagnosis (1) NSTEMI (non-ST elevated myocardial infarction) Status: Resolved Priority: Medium (2) Chest pain Status: Resolved Priority: Medium (3) ACS (acute coronary syndrome) Status: Resolved Priority: Medium (4) Diabetes mellitus Status: Chronic Priority: Medium (5) Hypertension Status: Chronic Priority: Medium (6) Hyperlipidemia Status: Chronic Priority: Medium (7) GERD (gastroesophageal reflux disease) Status: Chronic Priority: Low (8) Arthritis Status: Chronic Priority: Low (9) INGA (obstructive sleep apnea) Status: Chronic Priority: Medium Hospital Course - Lab Results Lab Results: Most Recent Lab Values WBC 8.0 10^3/ul (4.5-11.0) D 02/12/18 06:30 RBC 4.17 10^6/uL (3.5-6.1) 02/12/18 06:30 Hgb 13.2 g/dL (14.0-18.0) L 02/12/18 06:30 Hct 38.9 % (42.0-52.0) L 02/12/18 06:30 MCV 93.3 fl (80.0-105.0) 02/12/18 06:30 MCH 31.7 pg (25.0-35.0) 02/12/18 06:30 MCHC 33.9 g/dl (31.0-37.0) 02/12/18 06:30 RDW 14.0 % (11.5-14.5) 02/12/18 06:30 Plt Count 199 10^3/uL (120.0-450.0) 02/12/18 06:30 MPV 9.2 fl (7.0-11.0) 02/12/18 06:30 Gran % 65.0 % (50.0-68.0) 02/12/18 06:30 Lymph % (Auto) 20.2 % (22.0-35.0) L 02/12/18 06:30 [place] % (Auto) 9.7 % (1.0-6.0) H 02/12/18 06:30 Eos % (Auto) 4.9 % (1.5-5.0) 02/12/18 06:30 Baso % (Auto) 0.2 % (0.0-3.0) 02/12/18 06:30 Gran # 5.21 (1.4-6.5) 02/12/18 06:30 Lymph # (Auto) 1.6 (1.2-3.4) 02/12/18 06:30 [place] # (Auto) 0.8 (0.1-0.6) H 02/12/18 06:30 Eos # (Auto) 0.4 (0.0-0.7) 02/12/18 06:30 Baso # (Auto) 0.02 K/mm3 (0.0-2.0) 02/12/18 06:30 Sodium 142 mmol/L (132-148) 02/12/18 06:30 Potassium 3.9 mmol/L (3.6-5.0) 02/12/18 06:30 Chloride 108 mmol/L (98-107) H 02/12/18 06:30 Carbon Dioxide 25 mmol/L (21-33) 02/12/18 06:30 Anion Gap 13 (10-20) 02/12/18 06:30 BUN 13 mg/dL (7-21) 02/12/18 06:30 Creatinine 0.6 mg/dl (0.8-1.5) L 02/12/18 06:30 Est GFR ( Amer) > 60 02/12/18 06:30 Est GFR (Non-Af Amer) > 60 02/12/18 06:30 POC Glucose (mg/dL) 91 mg/dL (65-110) 02/12/18 07:31 Random Glucose 94 mg/dL (70-110) 02/12/18 06:30 Hemoglobin A1c 6.0 % (4.2-6.5) 02/09/18 14:30 Calcium 8.9 mg/dL (8.4-10.5) 02/12/18 06:30 Phosphorus 3.6 mg/dL (2.5-4.5) 02/09/18 14:30 Magnesium 2.1 mg/dL (1.7-2.2) 02/09/18 14:30 Total Bilirubin 0.3 mg/dL (0.2-1.3) 02/12/18 06:30 AST 74 U/L (17-59) H D 02/12/18 06:30 ALT 66 U/L (7-56) H 02/12/18 06:30 Alkaline Phosphatase 59 U/L (38-126) 02/12/18 06:30 Lactate Dehydrogenase 449 U/L (333-699) 02/10/18 06:45 Total Creatine Kinase 224 U/L (35-230) 02/10/18 06:45 Troponin I 1.32 ng/mL H* D 02/11/18 07:30 Total Protein 6.3 g/dL (5.8-8.3) 02/12/18 06:30 Albumin 3.8 g/dL (3.0-4.8) 02/12/18 06:30 Globulin 2.6 gm/dL 02/12/18 06:30 Albumin/Globulin Ratio 1.5 (1.1-1.8) 02/12/18 06:30 Triglycerides 90 mg/dL (35-160) 02/09/18 14:30 Cholesterol 104 mg/dL (130-200) L 02/09/18 14:30 LDL Cholesterol Direct 48 mg/dL (0-129) 02/09/18 14:30 HDL Cholesterol 40 mg/dL (29-60) 02/09/18 14:30 TSH 3rd Generation 1.12 mIU/mL (0.46-4.68) 02/09/18 14:30 Urine Color Yellow (YELLOW) 02/09/18 16:00 Urine Appearance Clear (CLEAR) 02/09/18 16:00 Urine pH 6.0 (4.7-8.0) 02/09/18 16:00 Ur Specific Mackey 1.020 (1.005-1.035) 02/09/18 16:00 Urine Protein Negative mg/dL (<30 mg/dL) 02/09/18 16:00 Urine Glucose (UA) Negative mg/dL (NEGATIVE) 02/09/18 16:00 Urine Ketones Negative mg/dL (NEGATIVE) 02/09/18 16:00 Urine Blood Negative (NEGATIVE) 02/09/18 16:00 Urine Nitrate Negative (NEGATIVE) 02/09/18 16:00 Urine Bilirubin Negative (NEGATIVE) 02/09/18 16:00 Urine Urobilinogen 0.2 E.U./dL (<1 E.U./dL) 02/09/18 16:00 Ur Leukocyte Esterase Negative [place]/uL (NEGATIVE) 02/09/18 16:00 - Hospital Course Hospital Course: Mr. Michaels is a 67-year-old male with past medical history significant for coronary artery disease status post CABG, type 2 diabetes, hypertension, hyperlipidemia, GERD, obstructive sleep apnea, and arthritis of the left hip the presented to the emergency room with chest pain. He was admitted and was treated with aspirin, plavix, lipitor, lisinopril, metoprolol, nitroglycerin, famotidine, and insulin. Patient is status post catheterization. Cardiac cathetherization showed 100% occlusion in the LAD, 100% occlusion in the RCA, patent HILL to LAD, and multiple high-grade stenoses of circumflex 90-99%. During the course of his hospital stay, he underwent EKG, chest xray, and echocardiogram. EKG showed sinus bradycardia with a rate of 58 and occasional PVC's, with ST and T changes, consider lateral ischemia. Chest xray showed no active disease, and echocardiogram showed normal left ventricular wall thickness , ejection fraction of 50%, trace aortic regurgitation, and trace mitral regurgitation. Cardiology (Dr. Elias) was consulted in the management and treatment of this patient. Cardiology recommended the patient be put on aspirin and plavix for one year, start Ranexa and lisinopril in addition to his home medications. Patient was instructed to resume activity as tolerated and to continue a heart healthy diet. Patient instructed to start new medications as prescribed: Ranexa 500mg BID and lisinopril 2.5mg. He was also instructed to resume home medications: aspirin 81mg, lipitor 40mg, crestor 20mg, plavix 75mg, metoprolol 50mg, zetia 10mg, and pepcid 20mg. Patient was told to restart metformin on 02/14 to prevent PAN. Patient was educated on the correct way to take medications and was scheduled for an appointment with Dr. Elias on 02/27/2018 at 11AM and to follow up with his PMD 3-5 days after discharge from. Patient further informed to return to the ED for worsening of symptoms.Patient is now medically optimized for discharge. Discharge Exam - Head Exam Head Exam: ATRAUMATIC, NORMAL INSPECTION - Eye Exam Eye Exam: Normal appearance - ENT Exam ENT Exam: Mucous Membranes Moist - Respiratory Exam Respiratory Exam: Clear to PA & Lateral. absent: Rales, Rhonchi, Wheezes - Cardiovascular Exam Cardiovascular Exam: REGULAR RHYTHM, +S1, +S2. absent: Gallop, Rubs, Systolic Murmur - GI/Abdominal Exam GI & Abdominal Exam: Normal Bowel Sounds, Soft. absent: Tenderness - Extremities Exam Additional comments: no calf tenderness or pedal edema - Neurological Exam Neurological exam: Alert, Oriented x3 - Psychiatric Exam Psychiatric exam: Normal Affect, Normal Mood - Skin Skin Exam: Dry, Normal Color, Warm Discharge Plan - Discharge Medications Prescriptions: Lisinopril [Zestril] 2.5 mg PO DAILY 21 Days tablet Ranolazine [Ranexa] 500 mg PO BID 7 Days ter - Follow Up Plan Condition: UNKNOWN Disposition: HOME/ ROUTINE Instructions: Coronary Heart Disease, Cardiac Catheterization, Heart Healthy Diet, Coronary Stenting (DC), Clopidogrel Additional Instructions: Patient Instructions: 1. Please take medications as prescribed. You have been started on Ranexa 500 twice a day by mouth and lisinopril 2.5 mg by mouth daily. Continue home medications as previously instructed. Do not take metformin upon discharge. Please restart metformin 500mg orally daily on 02/14/2018. 2. Please follow up with primary care physician within 3-5 days and cardiology ( Dr. Elias) at your scheduled appointment on February 27 at 11AM 3. Please return to emergency department if symptoms return. 4. Please get any refills on medications needed from your primary care physician. Referrals: Anne Elias MD [Staff Provider] - Lb Leal DO [Primary Care Provider] - <Areli Briceño R - Last Filed: 02/13/18 08:55> Provider - Provider Date of Admission: 02/09/18 16:19 Attending physician: Severino Saleh MD Primary care physician: Lb Leal DO Hospital Course - Lab Results Lab Results: Most Recent Lab Values WBC 8.0 10^3/ul (4.5-11.0) D 02/12/18 06:30 RBC 4.17 10^6/uL (3.5-6.1) 02/12/18 06:30 Hgb 13.2 g/dL (14.0-18.0) L 02/12/18 06:30 Hct 38.9 % (42.0-52.0) L 02/12/18 06:30 MCV 93.3 fl (80.0-105.0) 02/12/18 06:30 MCH 31.7 pg (25.0-35.0) 02/12/18 06:30 MCHC 33.9 g/dl (31.0-37.0) 02/12/18 06:30 RDW 14.0 % (11.5-14.5) 02/12/18 06:30 Plt Count 199 10^3/uL (120.0-450.0) 02/12/18 06:30 MPV 9.2 fl (7.0-11.0) 02/12/18 06:30 Gran % 65.0 % (50.0-68.0) 02/12/18 06:30 Lymph % (Auto) 20.2 % (22.0-35.0) L 02/12/18 06:30 [place] % (Auto) 9.7 % (1.0-6.0) H 02/12/18 06:30 Eos % (Auto) 4.9 % (1.5-5.0) 02/12/18 06:30 Baso % (Auto) 0.2 % (0.0-3.0) 02/12/18 06:30 Gran # 5.21 (1.4-6.5) 02/12/18 06:30 Lymph # (Auto) 1.6 (1.2-3.4) 02/12/18 06:30 [place] # (Auto) 0.8 (0.1-0.6) H 02/12/18 06:30 Eos # (Auto) 0.4 (0.0-0.7) 02/12/18 06:30 Baso # (Auto) 0.02 K/mm3 (0.0-2.0) 02/12/18 06:30 Sodium 142 mmol/L (132-148) 02/12/18 06:30 Potassium 3.9 mmol/L (3.6-5.0) 02/12/18 06:30 Chloride 108 mmol/L (98-107) H 02/12/18 06:30 Carbon Dioxide 25 mmol/L (21-33) 02/12/18 06:30 Anion Gap 13 (10-20) 02/12/18 06:30 BUN 13 mg/dL (7-21) 02/12/18 06:30 Creatinine 0.6 mg/dl (0.8-1.5) L 02/12/18 06:30 Est GFR ( Amer) > 60 02/12/18 06:30 Est GFR (Non-Af Amer) > 60 02/12/18 06:30 POC Glucose (mg/dL) 139 mg/dL (65-110) H 02/12/18 11:16 Random Glucose 94 mg/dL (70-110) 02/12/18 06:30 Hemoglobin A1c 6.0 % (4.2-6.5) 02/09/18 14:30 Calcium 8.9 mg/dL (8.4-10.5) 02/12/18 06:30 Phosphorus 3.6 mg/dL (2.5-4.5) 02/09/18 14:30 Magnesium 2.1 mg/dL (1.7-2.2) 02/09/18 14:30 Total Bilirubin 0.3 mg/dL (0.2-1.3) 02/12/18 06:30 AST 74 U/L (17-59) H D 02/12/18 06:30 ALT 66 U/L (7-56) H 02/12/18 06:30 Alkaline Phosphatase 59 U/L (38-126) 02/12/18 06:30 Lactate Dehydrogenase 449 U/L (333-699) 02/10/18 06:45 Total Creatine Kinase 224 U/L (35-230) 02/10/18 06:45 Troponin I 1.32 ng/mL H* D 02/11/18 07:30 Total Protein 6.3 g/dL (5.8-8.3) 02/12/18 06:30 Albumin 3.8 g/dL (3.0-4.8) 02/12/18 06:30 Globulin 2.6 gm/dL 02/12/18 06:30 Albumin/Globulin Ratio 1.5 (1.1-1.8) 02/12/18 06:30 Triglycerides 90 mg/dL (35-160) 02/09/18 14:30 Cholesterol 104 mg/dL (130-200) L 02/09/18 14:30 LDL Cholesterol Direct 48 mg/dL (0-129) 02/09/18 14:30 HDL Cholesterol 40 mg/dL (29-60) 02/09/18 14:30 TSH 3rd Generation 1.12 mIU/mL (0.46-4.68) 02/09/18 14:30 Urine Color Yellow (YELLOW) 02/09/18 16:00 Urine Appearance Clear (CLEAR) 02/09/18 16:00 Urine pH 6.0 (4.7-8.0) 02/09/18 16:00 Ur Specific [place] 1.020 (1.005-1.035) 02/09/18 16:00 Urine Protein Negative mg/dL (<30 mg/dL) 02/09/18 16:00 Urine Glucose (UA) Negative mg/dL (NEGATIVE) 02/09/18 16:00 Urine Ketones Negative mg/dL (NEGATIVE) 02/09/18 16:00 Urine Blood Negative (NEGATIVE) 02/09/18 16:00 Urine Nitrate Negative (NEGATIVE) 02/09/18 16:00 Urine Bilirubin Negative (NEGATIVE) 02/09/18 16:00 Urine Urobilinogen 0.2 E.U./dL (<1 E.U./dL) 02/09/18 16:00 Ur Leukocyte Esterase Negative [place]/uL (NEGATIVE) 02/09/18 16:00 Attending/Attestation - Attestation I have personally seen and examined this patient.: Yes I have fully participated in the care of the patient.: Yes I have reviewed all pertinent clinical information, including history, physical exam and plan: Yes Notes (Text): Patient seen and examined by me with resident at 10:15AM 02/12/18. Case including discharge plan discussed with resident. Agree with above with following additions/corrections Patient is a 67-year-old male with past medical history significant for coronary artery disease status post CABG, type 2 diabetes, hypertension, hyperlipidemia, GERD, obstructive sleep apnea, and arthritis of the left hip the presented to the emergency room with chest pain. Please see dictated H&P for further details. Patient was admitted with acute coronary syndrome and NSTEMI. Patient was found to have elevated troponins of 0.15, then 3.70, then 1.32. Patient was initially started on therapeutic Lovenox. Patient was continued on Plavix and aspirin. Cardiology was consulted. Patient was also continued on Lipitor and metoprolol. Patient to go for cardiac cath which per medical technologist blood bank showed mak[place] triple- vessel disease. Patient had stenting of the distal left main and proximal circumflex and balloon angioplasty of the mid and distal circumflex. Patient's chest pain resolved. Patient was started on Ranexa by cardiology. Patient tolerated procedure well. Patient was doing well and was cleared for discharge by cardiology. Smoking cessation was discussed. Patient was continued on insulin sliding scale for history of diabetes. Patient to be maintained on aspirin and Plavix. Chest pain resolved upon discharge. Patient was cleared for discharge by cardiology. Patient was discharged home. Physical exam: Gen: Awake and alert sitting up in bed in no acute distress HEENT: Normocephalic atraumatic. Extraocular muscles intact, pupils equal reactive. Oropharynx is pink and moist, no pharyngeal erythema or exudate appreciated. Neck is supple. Cardiovascular: Normal rhythm, normal S1-S2. No murmurs, rubs, or gallops appreciated Pulmonary: Normal respiratory effort. No rhonchi, rales or wheezing appreciated. Gastrointestinal: Soft, nontender, nondistended, positive bowel sounds all 4 quadrants, no guarding Musculoskeletal: Normal range of motion all extremities, no calf tenderness, no CVA tenderness Central nervous system: AAO 3. Cranial nerves 2 through 12 grossly intact. 5 out of 5 muscle strength all extremities. Sensation intact. Dermatologic: Skin warm and dry Please see chart for full details. Follow up instructions. Patient to take medications as prescribed. Patient to hold metformin until 02/14/2018 this patient had dye during cardiac catheterization. Patient to follow-up with his primary care physician within 3- [address] Elias at his scheduled appointment on February 27, 2018 at 11 AM. All instructions explained to patient in detail. Patient both understands and agrees to all instructions. Time spent in discharging the patient including chart review, medication reconciliation, discussion with the patient, medical screener, consultants, and nursing staff was approximately 40 minutes.
--- NOTE | 2018-02-12 15:33 | PN ---
DATE: 02/12/2018 REASON FOR CONSULTATION AND FOLLOWUP: Nonischemic coronary artery disease, status post a stent in left main circumflex. SUBJECTIVE: The patient denies any chest pain, shortness of breath, or any palpitations. OBJECTIVE: GENERAL: Lying flat in the bed. Not in apparent distress. VITAL SIGNS: Temperature afebrile, heart rate 69, blood pressure 129/83. HEENT: PERRLA. Extraocular muscles intact. NECK: Supple. No carotid bruits or thyromegaly. CHEST: Clear to auscultation. HEART: S1 and S2 regular. ABDOMEN: Soft. EXTREMITIES: Clubbing and cyanosis negative. LABORATORY DATA: Blood workup as follows: WBC 8, hemoglobin 13.8, hematocrit 38.9, and platelet count 199. Chemistry shows sodium 142, potassium 3.9, chloride 108, carbon dioxide 25, anion gap of 13. BUN 13, creatinine 0.6. IMPRESSION: Acute coronary syndrome; unstable angina; non-ST elevation myocardial infarction; coronary artery disease, status post coronary artery bypass graft in 1990; and status post percutaneous transluminal coronary angioplasty of left main ostial circumflex and proximal circumflex was done, and plain balloon angioplasty of mid and distal circumflex, obtuse marginal branch done. Last stress test in March 2016, was negative. As the cath revealed patent left internal mammary artery to left anterior descending artery, occluded right coronary artery graft as well, occluded graft in the circumflex, occluded high grade stenosis in the ostial circumflex and proximal and left main. RECOMMENDATIONS: Continue aspirin, continue Plavix, for one year. Continue his baseline medication, metformin, atorvastatin, metoprolol and Zetia. Ranexa was added. We will discontinue telemetry, follow with Dr. Newman in one week. Left radial access site reviewed, distal pulse, puncture site at 2+. No issues. The patient had echocardiography done yesterday 02/11/2018, post PCI that revealed ejection fraction 50%, trace aortic regurgitation, trace mitral regurgitation, tricuspid regurgitation, RV systolic pressure 19, status post non PTCA, echo. Anne Elias MD [facility] # [id number]
== END 2018-02-12 14:18 | disposition home or self-care (01) | DRG 247 ==
LOC: ED 13:10 → ERH 16:19 → 2RNO 18:02 → 2RSO 02-11 11:51
PROVIDERS: ADMIT Internal Medicine; ATTEND Internal Medicine
PROC: 027034Z Dilation of Coronary Artery, One Artery with Drug-eluting Intraluminal Device, Percutaneous Approach (ICD-10-PCS; principal; 2018-02-11)
PROC: 02703ZZ Dilation of Coronary Artery, One Artery, Percutaneous Approach (ICD-10-PCS; 2018-02-11)
PROC: 4A023N7 Measurement of Cardiac Sampling and Pressure, Left Heart, Percutaneous Approach (ICD-10-PCS; 2018-02-11)
PROC: B2111ZZ Fluoroscopy of Multiple Coronary Arteries using Low Osmolar Contrast (ICD-10-PCS; 2018-02-11)
PROC: B2151ZZ Fluoroscopy of Left Heart using Low Osmolar Contrast (ICD-10-PCS; 2018-02-11)
DX: I21.4 Non-ST elevation (NSTEMI) myocardial infarction (principal); E11.9 Type 2 diabetes mellitus without complications; I10 Essential (primary) hypertension; E78.5 Hyperlipidemia, unspecified; K21.9 Gastro-esophageal reflux disease without esophagitis; M16.12 Unilateral primary osteoarthritis, left hip; J44.9 Chronic obstructive pulmonary disease, unspecified; I25.110 Atherosclerotic heart disease of native coronary artery with unstable angina pectoris; E78.00 Pure hypercholesterolemia, unspecified; G47.33 Obstructive sleep apnea (adult) (pediatric); I25.5 Ischemic cardiomyopathy; I49.3 Ventricular premature depolarization; F17.200 Nicotine dependence, unspecified, uncomplicated; I08.3 Combined rheumatic disorders of mitral, aortic and tricuspid valves; I25.2 Old myocardial infarction; Z79.02 Long term (current) use of antithrombotics/antiplatelets; Z79.4 Long term (current) use of insulin; Z79.82 Long term (current) use of aspirin; Z79.899 Other long term (current) drug therapy; Z95.1 Presence of aortocoronary bypass graft; Z98.61 Coronary angioplasty status

== ENCOUNTER 2018-05-29 09:28 | Day surgery (SDC) | payer MEDICARE ==
[2018-05-29] MEDS ORDERED: Propofol 10 mg/ml Inj (20 ML) ONE (10:15)
[2018-05-29] MEDS ORDERED: Etomidate 20 mg/10ml Inj IV ONE ×2 (10:15→10:35)
[2018-05-29] MEDS ORDERED: ePHEDrine 50 mg/ml Inj ONE (10:33)
[2018-05-29] MEDS ORDERED: Lactated Ringer's 1,000 ML IV SCH (11:00)
[2018-05-29 12:05] VITALS: PULSE 56; O2SAT 100
[2018-05-29 13:33] VITALS: BP 106/56; RESP 18; TEMP 98
== END 2018-05-29 13:15 | disposition home or self-care (01) ==
LOC: ENDO 09:28
PROVIDERS: ATTEND Specialist
DX: D12.5 Benign neoplasm of sigmoid colon (principal); K57.30 Diverticulosis of large intestine without perforation or abscess without bleeding; K64.8 Other hemorrhoids; R19.5 Other fecal abnormalities; E11.9 Type 2 diabetes mellitus without complications; I25.10 Atherosclerotic heart disease of native coronary artery without angina pectoris; Z95.1 Presence of aortocoronary bypass graft
CPT/HCPCS: 45385; 82948; 88305; J2001; J2704; J7040; J7120

== ENCOUNTER 2018-09-26 08:28 | Outpatient (CLI) | payer MEDICARE | END 2018-09-26 08:29 | disposition home or self-care (01) | LOC: CARDIO 08:28 ==

== ENCOUNTER 2018-10-03 10:21 | Outpatient (CLI) | payer MEDICARE | END 2018-10-03 10:22 | disposition home or self-care (01) | LOC: RAD 10:21 | DX: I42.0 Dilated cardiomyopathy (principal) ==

== ENCOUNTER 2018-10-14 07:44 | Day surgery (SDC) | payer MEDICARE ==
[2018-10-07 13:45] VITALS: BMI 25.7
[2018-10-14 08:28] VITALS: RESP 18
--- NOTE | 2018-10-14 08:34 | HP ---
DATE OF EXAM: 10/11/2018 REASON FOR ADMISSION: Left heart cath, possible angioplasty. BRIEF CLINICAL HISTORY: This is a 68-year-old male with past medical history significant for coronary artery disease status post CABG in 1990, status post percutaneous transluminal angioplasty of distal left main and proximal circumflex as well as plain balloon angioplasty of OM1 on 02/11/2018, at that time the patient presented with unstable angina, plain results of OM2. He was recently seen in Dr. Newman's office complaining of chest pain. The patient underwent a stress test dated 09/18/2017 that showed abnormal cardiac perfusion study. In comparison with the last study, the defect appears larger in the anterior defect, ejection fraction 33%. The patient is scheduled for elective cardiac cath and possible angioplasty. PAST MEDICAL HISTORY: Significant for coronary artery disease status post multiple stent history of CABG in 1990. RECENT CARDIAC WORKUP: As follows; the patient had a cardiac catheterization on 02/11/2018 that showed a dominant right coronary artery, left main artery with 90% stenosis in the distal segment continued to the circumflex, LAD 100% occluded, circumflex 99% ostial segment and mid circumflex 95% stenosis, obtuse marginal 1 with 99% stenosis noted. Right coronary artery is a medium sized vessel with diffuse calcification and 100% stenosis in the mid segment. Only patent graft is the HILL and LAD to the mid anterior descending artery with patent saphenous graft to the distal, the right coronary artery is occluded since 06/05/2011 and saphenous venous graft to the obtuse marginal 1 branch is also occluded on 06/05/2011. Left ventriculogram with ejection of 45% to 50% with EDP in the range of 15. Recent stress test dated 09/26/2018 that shows abnormal myocardial perfusion with ejection fraction of 33%. Reversible anterolateral defect suggestive of ischemia, moderate LV dysfunction. In comparison with the last study dated 04/27/2016, the defect appears larger and in the anterolateral wall. CURRENT MEDICATIONS: The patient is taking metformin, CoQ10, ranolazine/Ranexa, Zetia, lisinopril, aspirin and Plavix. ALLERGIES: NO KNOWN DRUG ALLERGY. REVIEW OF SYSTEMS: As per HPI. PHYSICAL EXAMINATION: GENERAL: Height of the patient 5 feet 6 inches, weight of the patient 159 pounds, body mass index 25.7 kg/m2. VITAL SIGNS: Temperature afebrile, heart rate 80, blood pressure 130/80. HEENT: PERRLA. Extraocular muscles intact. NECK: Supple. No carotid bruits or thyromegaly. CHEST: Clear to auscultation. HEART: S1 and S2, regular. ABDOMEN: Soft. EXTREMITIES: Clubbing, cyanosis negative. LABORATORY DATA: Blood workup pending. IMPRESSION: A 68-year-old male with past medical history significant for coronary artery disease status coronary artery bypass graft in 1990, history of recent stent on 02/11/2018, when the patient presented with [id number] myocardial infarction, underwent stent to left main as well as angioplasty of circumflex and obtuse marginal 1. Recent stress test abnormal. The patient had two episodes of chest pain while walking in the cold wave, so the patient is scheduled cardiac cath and possible angioplasty. Risks, benefits, and alternatives were explained to the patient. The patient is agreeable to proceed for cardiac catheterization. Further recommendation after cardiac catheterization. We will follow with you. Thank you Dr. Newman for providing us the opportunity in taking care of the patient, Mr. Michaels. Anne Elias MD cc: Anne Newman MD
[2018-10-14 08:43] LABS: BASO # 0.03 K/mm3 (0.0-2.0); BASO % 0.4 % (0.0-3.0); EOS # 0.3 (0.0-0.7); EOS % 4.6 % (1.5-5.0); HEMOGLOBIN 13.5 g/dL (14.0-18.0); LYMPH # 1.8 (1.2-3.4); LYMPH % 25.1 % (22.0-35.0); MEAN CELL VOLUME 95.5 fl (80.0-105.0); MEAN CORPUSCULAR HEMOGLOBIN 31.8 pg (25.0-35.0); MEAN CORPUSCULAR HGB CONC 33.3 g/dl (31.0-37.0); MEAN PLATELET VOLUME 9.4 fl (7.0-11.0); MONO # 0.9 (0.1-0.6); RBC 4.25 10^6/uL (3.5-6.1); WHITE BLOOD COUNT 7.3 10^3/uL (4.5-11.0)
[2018-10-14 08:53] LABS: INR 1.12; PARTIAL THROMBOPLASTIN TIME 28.9 Seconds (26.9-38.3); PROTHROMBIN TIME 12.7 SECONDS (9.4-12.5)
[2018-10-14 08:56] LABS: BLOOD UREA NITROGEN 20 mg/dL (7-21); GFR NON-AFRICAN AMERICAN > 60; HDL CHOLESTEROL 43 mg/dL (29-60)
[2018-10-14 09:06] LABS: LDL CHOLESTEROL 71 mg/dL (0-129)
[2018-10-14] MEDS ORDERED: Lidocaine PF 2% (5 ml) Inj (For Cardiac Arrhy) ONE (10:00)
[2018-10-14] MEDS ORDERED: Iodixanol 320 MG/ML 200 ML BOTTLE IV ONE (10:01)
[2018-10-14] MEDS ORDERED: Heparin 2,000 ML IV ONE (10:01)
[2018-10-14] MEDS ORDERED: Midazolam 2 MG/2 ML VIAL ONE ×2 (10:23→10:44)
--- NOTE | 2018-10-14 10:33 | CARD ---
APPROVED REPORT Date of service: 10/14/2018 EKG Measurement Heart [id number] <Conclusion> Marked sinus bradycardia Inferior infarct, age undetermined ST & T wave abnormality, consider lateral ischemia Abnormal ECG
[2018-10-14] MEDS ORDERED: Sodium Chloride 0.9% 1,000 ML IV SCH (11:30)
[2018-10-14 11:40] VITALS: TEMP 97.2
--- NOTE | 2018-10-14 11:57 | CPOSTOP ---
DATE: 10/14/2018 CARDIOVASCULAR LABORATORY POSTPROCEDURE NOTE PHYSICIAN: Anne Elias MD MOBILE UI DESIGNER: LISSETH Rosado TYPE OF ANESTHESIA: Moderate conscious sedation. PRE-PROCEDURE DIAGNOSES: Unstable angina, abnormal stress test, history of coronary artery bypass graft, and history of percutaneous transluminal coronary angioplasty. PROCEDURE PERFORMED: Left heart catheterization, left internal mammary artery injection, and saphenous vein graft injection. FINDINGS: [place] triple-vessel disease, patent HILL to LAD. FINAL DIAGNOSIS: Patent left internal mammary artery to left anterior descending artery. POST PROCEDURE CONDITION: The patient's condition is stable. VASCULAR ACCESS SITE: Right femoral artery. CLOSURE DEVICE: AngioSeal. TOTAL RADIATION DOSE: 92794.50 milligray unit. FLUORO TIME: 8.9 minutes. Anne Elias MD
[2018-10-14 13:11] VITALS: BP 97/48; PULSE 57; O2SAT 98
--- NOTE | 2018-10-14 19:54 | CARD ---
APPROVED REPORT Date of service: 10/14/2018 HISTORY The patient is a 68 year-old male with a history of : previous AL (> 7 days), most recent EF: 33%. (EF Method: RADIONUCLIDE), diabetes mellitus with oral treatment , previous diagnostic cath, tobacco history() : The patient is a former smoker , previous PCI (The PCI date was 02/11/2018), hypertension , previous CABG (The CABG date was 07/194), dyslipidemia . INDICATION The indication(s) include : positive stress test. CASE TECHNIQUE The patient was brought electively to the Cardiac Catheterization Laboratory in a fasting state and was prepped and draped in a sterile manner. The right femoral groin was infiltrated with 2% Lidocaine subcutaneous anesthesia. A 6 Fr x 11 cm Lorna sheath was inserted into the right femoral artery without difficulty. Coronary angiography was performed using coronary diagnostic catheters. The left coronary system was accessed and visualized with a 6 Fr XB 3.5 catheter. The right coronary system was accessed and visualized with a Diagnostic ,5F JR 4 CATH DXT 100 CM catheter. The left ventricle was accessed and visualized with a 5F PIGTAIL 145 CATH DXT 110 CM catheter. The left internal mammary artery was accessed and visualized with a Diagnostic ,GARCÍA catheter. The saphenous vein graft was accessed and visualized with a Diagnostic ,5F JR 4 CATH DXT 100 CM catheter. The saphenous vein graft was accessed and visualized with a Diagnostic ,5F JR 4 CATH DXT 100 CM catheter. Left ventricular/Aortic Valve gradient assessed on pullback. Left ventriculogram was performed in GODFREY projection. Pre-demployment femoral angiogram was performed . The patient tolerated the procedure well and there were no complications associated with the procedure. Vessel Analysis The patient's coronary anatomy is right dominant. The left main coronary artery is a medium size vessel with diffuse calcification noted throughout this vessel and without significant stenosis. Patent stent The left main bifurcates to the left anterior descending and circumflex. The left anterior descending artery is a medium size vessel with diffuse calcification noted throughout this vessel and with significant stenosis. There is a 100% stenosis in the mid segment. The first diagonal branch is a small size vessel with diffuse calcification noted throughout this vessel and without significant stenosis. The circumflex artery is a medium size vessel with diffuse calcification noted throughout this vessel and without significant stenosis. patent stent proximally The first obtuse marginal branch is a small size vessel with diffuse calcification noted throughout this vessel and without significant stenosis. The right coronary artery is a medium size vessel with diffuse calcification noted throughout this vessel and with significant stenosis. There is a 100% stenosis in the mid segment. The left internal mammary artery to the mid left anterior descending artery segment is patent that gives collaterals to R PDA ,and flows backward to left main and diagonals.. The saphenous vein graft to the distal right coronary artery Occluded, since 06/05/2011 . The saphenous vein graft to the first obtuse marginal branch segment occluded ,since 06/05/2011 . Left Ventricle The left ventricle is borderline in size with mildly decreased contractility. Ischemic cardiomyopathy. The left ventricular ejection fraction is estimated to be 40-45%. The left ventricular end diastolic pressure is 5-6 mmHg. There was no gradient across the aortic valve upon pullback. Conclusion Natve triple vessel Diseased Patent García to LAD that gives collatrals to R PDA and fills retrogrades to Left main and diagonals. Occluded SVG to OM1 and RCa since 06/05/2011. Mildly decreased LV Fx. ef-40-45%, EDP_4--6 mm of Hg. Patent previous Stent in left main/ ostial Cx. Recommendations Aggressive Medical TherapyCardiac Risk Reduction Program Weight Loss Reduction Program Cc; Drs. Martinez/ dayna.
== END 2018-10-14 14:30 | disposition home or self-care (01) ==
LOC: CATH 07:44
PROVIDERS: ATTEND Internal Medicine Cardiovascular Disease
DX: I25.110 Atherosclerotic heart disease of native coronary artery with unstable angina pectoris (principal); E11.9 Type 2 diabetes mellitus without complications; E78.5 Hyperlipidemia, unspecified; I10 Essential (primary) hypertension; I25.2 Old myocardial infarction; I25.5 Ischemic cardiomyopathy; I25.810 Atherosclerosis of coronary artery bypass graft(s) without angina pectoris; I25.82 Chronic total occlusion of coronary artery; R94.39 Abnormal result of other cardiovascular function study; Z79.82 Long term (current) use of aspirin; Z79.84 Long term (current) use of oral hypoglycemic drugs; Z79.899 Other long term (current) drug therapy; Z87.891 Personal history of nicotine dependence; Z95.5 Presence of coronary angioplasty implant and graft; Z95.1 Presence of aortocoronary bypass graft
CPT/HCPCS: 36415; 80048; 80061; 85025; 85610; 85730; 86850; 86900; 93005; 93459; 99152; C1769 ×2; C1887 ×2; C2629; J1644 ×2; J2250; J2405; J3010; J7030; Q9966